=== PATIENT | male | born 1995 | race Caucasian/White ===

== ENCOUNTER 2017-02-27 20:19 | Emergency (ER) | payer OTHER ==
[2017-02-27] MEDS ORDERED: Lidocaine 1% 10 ML MDV INJECT ONE (20:58)
[2017-02-27] MEDS ORDERED: Lidocaine 1% 10 ML MDV ONE (21:06)
[2017-02-27] MEDS ORDERED: Diphtheria,Pertussis(Acell),Tetanus Vaccine 0.5 ML SDV IM ONE (21:18)
--- NOTE | 2017-02-27 21:23 | EDM.PDOC ---
ED HPI GENERAL MEDICAL PROBLEM - General Chief Complaint: Laceration Stated Complaint: CUT LEFT HAND WITH RING FINGER Time Seen by Provider: 02/27/17 20:56 Source of Information: Reports: Patient History Limitations: Reports: No Limitations - History of Present Illness INITIAL COMMENTS - FREE TEXT/NARRATIVE: Patient is a 21-year-old male who presents to the ED complaining of a laceration to the left ring finger. Patient was cutting up food and accidentally cut himself with a knife. Bleeding controlled with direct pressure. Slight numbness noted to the distal phalanx lateral side. He is able to flex and extend the finger at all joints with no difficulties. Tetanus status is not up-to-date. Left 4-Ring finger Pain Score (Numeric/FACES): 8 - Related Data Allergies Allergy/AdvReac Type Severity Reaction Status Date / Time azithromycin [From Zithromax] Allergy Rectal Verified 02/27/17 20:33 Bleeding Home Meds: Home Meds traMADol [Ultram] 50 mg PO DAILY PRN 02/27/17 [History] Past Medical History Musculoskeletal History: Reports: Fracture, Other (See Below) Other Musculoskeletal History: wrist fx Neurological History: Reports: Migraines Social & Family History - Tobacco Use Smoking Status *Q: Never Smoker - Caffeine Use Caffeine Use: Reports: None - Recreational Drug Use Recreational Drug Use: No ED ROS GENERAL - Review of Systems Review Of Systems: ROS reveals no pertinent complaints other than HPI. ED EXAM, SKIN/RASH Exam: See Below Exam Limited By: No Limitations General Appearance: Alert, WD/WN, No Apparent Distress Ears: Hearing Grossly Normal Nose: Normal Inspection Throat/Mouth: Normal Voice, No Airway Compromise Neck: Normal Inspection, Supple Respiratory/Chest: No Respiratory Distress, No Accessory Muscle Use Cardiovascular: Normal Peripheral Pulses, Regular Rate, Rhythm Peripheral Pulses: 2+: Radial (L) Extremities: Other (1.2 cm laceration to the DIP palmar side of the left ring finger with mild bleeding present. No obvious tendon involvement with examination. Patient is able to flex the distal phalanx against resistance with no issues. Mild numbness noted to the lateral aspect of the distal phalanx. None noted medially. No other concerning findings.) Neurological: Alert, Oriented, CN II-XII Intact, Normal Cognition Psychiatric: Normal Affect, Normal Mood Skin: Warm, Dry, Normal Color ED SKIN PROCEDURES - Laceration/Wound Repair Left Finger Lac/Wound length In cm: 1.2 Appearance: Subcutaneous Distal NVT: Neuro & Vascular Intact, No Tendon Injury Anesthetic Type: Local Local Anesthesia - Lidocaine (Xylocaine): 1% Plain Local Anesthetic Volume: 4cc Skin Prep: Chlorhexidine (Hibiciens), Saline, Sterile Drape Exploration/Debridement/Repair: Wound Explored, In a Bloodless Field, Explored to Base, No Foreign Material Found Closed with: Sutures Suture Size: 4-0 # of Sutures: 5 Suture Type: Prolene, Interrupted, Simple Drain Placement: No Sterile Dressing Applied: Nurse Tetanus Status Addressed: Yes Complications: No Course - Vital Signs Last Recorded V/S: Last Vital Signs Temp 97.7 F 02/27/17 20:25 Pulse 67 02/27/17 20:25 Resp 18 02/27/17 20:25 BP 138/72 02/27/17 20:25 Pulse Ox 100 02/27/17 20:25 - Orders/Labs/Meds Orders: Active Orders 24 hr Category Date Time Status Vaccines to be Administered [RC] PER UNIT ROUTINE Care 02/27/17 21:18 Active Meds: Medications Discontinued Medications Generic Name Dose Route Start Last Admin Trade Name Freq PRN Reason Stop Dose Admin Diphtheria/Tetanus/Acell Pertussis 0.5 ml 02/27/17 21:18 02/27/17 21:35 Adacel IM 02/27/17 21:19 0.5 ml .ONCE ONE Administration Ibuprofen 800 mg 02/27/17 21:46 02/27/17 21:50 Motrin PO 02/27/17 21:47 800 mg ONETIME ONE Administration Lidocaine HCl 10 ml 02/27/17 20:58 02/27/17 21:34 Xylocaine 1% INJECT 02/27/17 20:59 10 ml ONETIME ONE Administration Lidocaine HCl Confirm 02/27/17 21:06 02/27/17 21:36 Xylocaine 1% Administered 02/27/17 21:07 Not Given Dose 10 ml .ROUTE .STK-MED ONE - Re-Assessments/Exams Free Text/Narrative Re-Assessment/Exam: Patient is a 1.2 cm laceration to the lateral aspect of the left ring finger with mild bleeding present. Laceration is located to the palmar aspect of the DIP. Patient has mild numbness to the lateral aspect of the tip of the finger. None noted medially. Ordered lidocaine 1% and Adacel IM. Laceration closed with no complications. Aluminum finger splint applied to the finger so he can't bend the DIP in fear he may tear some of the sutures with bending. Patient discharged home with instructions as documented. Departure - Departure Time of Disposition: 21:21 Disposition: Home, Self-Care 01 Condition: Good Clinical Impression: Finger laceration Qualifiers: Encounter type: initial encounter Finger: ring finger Damage to nail status: without damage Foreign body presence: without foreign body Laterality: left Qualified Code(s): S61.215A - Laceration without foreign body of left ring finger without damage to nail, initial encounter - Discharge Information Instructions: Laceration Care, Adult, [id number], Stitches, Harmony, or Adhesive Wound Closure, [id number] Referrals: PCP,Not In Area [Primary Care Provider] - Forms: ED Department Discharge Additional Instructions: As discussed cleanse site twice daily with soap and water, pat dry, reapply triple antibiotic ointment, and dressing. See a provider at [facility] in [place] for suture removal in 10 days. Do not soak the wound. Keep area clean and dry. Wear the splint as needed when doing work that may break the sutures while bending. Return to ED as needed for any new or worsening symptoms. Numbness to the lateral aspect of the distal phalanx may resolve with time. - My Orders Last 24 Hours: My Active Orders 02/27/17 21:18 Vaccines to be Administered [RC] PER UNIT ROUTINE - Assessment/Plan Last 24 Hours: My Active Orders 02/27/17 21:18 Vaccines to be Administered [RC] PER UNIT ROUTINE
[2017-02-27] MEDS ORDERED: Ibuprofen 800 MG Tab PO ONE (21:46)
== END 2017-02-27 21:53 | disposition home or self-care (01) ==
LOC: JD.ED 20:19
DX: S61.215A Laceration without foreign body of left ring finger without damage to nail, initial encounter (principal); Z79.899 Other long term (current) drug therapy; Z88.1 Allergy status to other antibiotic agents; Z23 Encounter for immunization; W26.0XXA Contact with knife, initial encounter
CPT/HCPCS: 12001; 90471; 90715; 99283; A9270; 99282